=== PATIENT | male | born 1965 | race Caucasian/White ===

== ENCOUNTER 2022-04-07 10:48 | Emergency (ER) | payer BC ==
[~2022-04-07] VITALS: Ht 193 cm; Wt 104.3 kg
[2022-04-07] MEDS ORDERED: WARF1TAB2 (10:53)
--- NOTE | 2022-04-07 11:12 | NUR ---
1st contact with patient:AOx4, moving all extremities, respiration:easy, c/o left sided head pains s/p accidentally hitting his head on a horizontal bar while in a baseball game dugout. Patient denies LOC but felt "dazed" after hitting his head, no visible injuries seen. Lab [email or web address] drawing his blood, for CT [email or web address].
[2022-04-07 11:19] LABS: HEMATOCRIT 40.9 % (36.7-47.1); MEAN CORPUSCULAR HEMOGLOBIN 30.3 uug (23.8-33.4); MEAN CORPUSCULAR VOLUME 90.1 fL (73.0-96.2); PLATELET COUNT (AUTO) 280 K/uL (152-348)
--- NOTE | 2022-04-07 12:35 | NUR ---
Patient discharged to home in stable condition with brisk steady gait. Written and verbal after care instructions given. Patient verbalized understanding and compliance of instructions. Stressed follow up with primary doctor or return to ER for worsening s/s.
== END 2022-04-07 12:36 | disposition home or self-care (01) ==
LOC: ER 10:54
DX: S09.90XA Unspecified injury of head, initial encounter (principal); W22.09XA Striking against other stationary object, initial encounter; Y92.89 Other specified places as the place of occurrence of the external cause; Z79.01 Long term (current) use of anticoagulants
CPT/HCPCS: 36415; 70450; 85025; 85610; A4663